=== PATIENT | male | born 1960 | race Caucasian/White ===

== ENCOUNTER 2017-04-30 18:49 | Observation (INO) | payer MEDICAID, OTHER ==
[~2017-04-30] VITALS: Ht 172.7 cm; Wt 59.1 kg
[2017-04-30 19:37] LABS: BASOPHILS # (AUTO) 0.07 x10^3/uL (0-0.1); BASOPHILS % (AUTO) 1 % (0-1); EOSINOPHILS % (AUTO) 1 % (1-7); LYMPHOCYTES # (AUTO) 3.31 x10^3/uL (1-3.4); LYMPHOCYTES % (AUTO) 21 % (22-44); MD NO; MEAN CORPUSCULAR HEMOGLOBIN 33.2 pg (27.5-34.5); MEAN CORPUSCULAR HGB CONC 34.2 g/dL (33.2-36.2); MEAN CORPUSCULAR VOLUME 96.9 fL (81-97); MEAN PLATELET VOLUME 7.7 fL (7.4-10.4); MONOCYTES % (AUTO) 8 % (2-9); NEUTROPHILS # (AUTO) 10.96 x10^3/uL (1.8-6.8); NEUTROPHILS % (AUTO) 69 % (42-75); PLATELET COUNT 370 x10^3/uL (130-400); RED BLOOD COUNT 4.41 x10^6/uL (4.38-5.82); RED CELL DISTRIBUTION WIDTH 14.3 % (9.4-14.8)
[2017-04-30 19:42] LABS: ALANINE AMINOTRANSFERASE 23 U/L (12-78); ALBUMIN 4.1 g/dL (3.4-5.0); ANION GAP 9 mmol/L (5-15); CALCIUM 8.8 mg/dL (8.5-10.1); CHLORIDE 109 mmol/L (98-107); CREATININE 0.88 mg/dL (0.7-1.3); SALICYLATE LEVEL 7.4 mg/dL (2.8-20.0)
[2017-04-30 19:44] LABS: ALKALINE PHOSPHATASE 79 U/L (45-117); BILIRUBIN,TOTAL 0.3 mg/dL (0.2-1.0); TOTAL PROTEIN 7.5 g/dL (6.4-8.2)
[2017-04-30 19:45] LABS: ACETAMINOPHEN < 2 mcg/mL (10-30)
[2017-04-30 21:22] LABS: AMPHETAMINE SCREEN, URINE Negative (Negative); BARBITURATE SCREEN, URINE Negative (Negative); BENZODIAZEPINE SCREEN, URINE Negative (Negative); CANNABINOID SCREEN, URINE Negative (Negative); COCAINE SCREEN, URINE Negative (Negative); METHADONE SCREEN, URINE Negative (Negative); OPIATE SCREEN, URINE Negative (Negative)
[2017-04-30] MEDS ORDERED: METH20TA PO (21:33)
[2017-04-30] MEDS ORDERED: PARO20TA98 PO (21:33)
[2017-05-02] MEDS ORDERED: ACETAMINOPHEN 500 MG TABLET ONE (17:39)
[2017-05-02] MEDS ORDERED: ACETAMINOPHEN 325 MG TABLET PO ONE (19:00)
[2017-05-03] MEDS ORDERED: ACETAMINOPHEN 500 MG TABLET ONE (14:49)
[2017-05-03] MEDS ORDERED: ACETAMINOPHEN 325 MG TABLET PO ONE (15:00)
[2017-05-04] MEDS ORDERED: DOCUSATE 100 MG CAPSULE PO PRN (16:30)
[2017-05-04 16:40] LABS: BASOPHILS # (AUTO) 0.06 x10^3/uL (0-0.1); BASOPHILS % (AUTO) 1 % (0-1); EOSINOPHILS % (AUTO) 4 % (1-7); LYMPHOCYTES # (AUTO) 2.86 x10^3/uL (1-3.4); LYMPHOCYTES % (AUTO) 34 % (22-44); MD NO; MEAN CORPUSCULAR HEMOGLOBIN 32.7 pg (27.5-34.5); MEAN CORPUSCULAR HGB CONC 33.7 g/dL (33.2-36.2); MEAN CORPUSCULAR VOLUME 97.1 fL (81-97); MEAN PLATELET VOLUME 7.9 fL (7.4-10.4); MONOCYTES # (AUTO) 1.09 x10^3/uL (0.2-0.8); MONOCYTES % (AUTO) 13 % (2-9); NEUTROPHILS # (AUTO) 4.23 x10^3/uL (1.8-6.8); NEUTROPHILS % (AUTO) 50 % (42-75); PLATELET COUNT 336 x10^3/uL (130-400); RED BLOOD COUNT 4.21 x10^6/uL (4.38-5.82); RED CELL DISTRIBUTION WIDTH 14.3 % (9.4-14.8)
[2017-05-04 17:12] LABS: MICROSCOPIC AUTO
[2017-05-04 17:27] LABS: CULTURE INDICATED? NO
[2017-05-04] MEDS ORDERED: ACETAMINOPHEN 325 MG TABLET ONE (21:26)
[2017-05-04] MEDS: ACETAMINOPHEN 325 MG TABLET PO PRN (21:29)
[2017-05-05] MEDS ORDERED: TAMSULOSIN 0.4 MG CAP.ER.24H ONE (07:54)
[2017-05-05] MEDS: TAMSULOSIN 0.4 MG CAP.ER.24H PO SCH (08:08)
[2017-05-05] MEDS: PAROXETINE 20 MG TABLET PO SCH (08:33)
[2017-05-05 19:35] VITALS: BP 116/67
[2017-05-06 07:45] VITALS: BP 131/82
[2017-05-06] MEDS: TAMSULOSIN 0.4 MG CAP.ER.24H PO SCH (08:41)
[2017-05-06] MEDS: PAROXETINE 20 MG TABLET PO SCH (08:42)
[2017-05-06 19:31] VITALS: BP 111/72
[2017-05-07 07:24] VITALS: BP 117/78
[2017-05-07] MEDS: TAMSULOSIN 0.4 MG CAP.ER.24H PO SCH (07:52)
[2017-05-07] MEDS: PAROXETINE 20 MG TABLET PO SCH (07:52)
[2017-05-07] MEDS: ACETAMINOPHEN 325 MG TABLET PO PRN (08:00)
[2017-05-07 19:28] VITALS: BP 111/68
[2017-05-08 07:44] VITALS: BP 119/76
[2017-05-08] MEDS: PAROXETINE 20 MG TABLET PO SCH (08:05)
[2017-05-08] MEDS: TAMSULOSIN 0.4 MG CAP.ER.24H PO SCH ×4 (08:05→08:08)
[2017-05-08 20:02] VITALS: BP 109/70
[2017-05-09 07:40] VITALS: BP 120/80
[2017-05-09] MEDS: TAMSULOSIN 0.4 MG CAP.ER.24H PO SCH (08:01)
[2017-05-09] MEDS: PAROXETINE 20 MG TABLET PO SCH (08:01)
[2017-05-09 19:46] VITALS: BP 105/72
[2017-05-10 07:26] VITALS: BP 124/80
[2017-05-10] MEDS: PAROXETINE 20 MG TABLET PO SCH (08:29)
[2017-05-10] MEDS: TAMSULOSIN 0.4 MG CAP.ER.24H PO SCH (08:29)
[2017-05-10 19:40] VITALS: BP 113/69
[2017-05-11 07:45] VITALS: BP 121/78
[2017-05-11] MEDS: PAROXETINE 20 MG TABLET PO SCH (08:12)
[2017-05-11] MEDS: TAMSULOSIN 0.4 MG CAP.ER.24H PO SCH (08:13)
[2017-05-11] MEDS ORDERED: TAMS-11 PO (14:58)
== END 2017-05-11 16:14 | disposition home or self-care (01) ==
LOC: MERGE 18:49 → EDBD 18:49 → ED 21:06 → EDIP 05-04 16:17 → 2N 05-05 19:28
PROVIDERS: ADMIT Internal Medicine; ATTEND Internal Medicine
DX: R45.851 Suicidal ideations (principal); D72.829 Elevated white blood cell count, unspecified; F10.10 Alcohol abuse, uncomplicated; F32.9 Major depressive disorder, single episode, unspecified; F98.8 Other specified behavioral and emotional disorders with onset usually occurring in childhood and adolescence; Z82.3 Family history of stroke; Z85.828 Personal history of other malignant neoplasm of skin; Z91.5 Personal history of self-harm; Z72.0 Tobacco use
CPT/HCPCS: 36415; 80053; 80307; 80329; 81001; 85025; 99285; G0378; G0480

== ENCOUNTER 2017-09-27 00:58 | Observation (INO) | payer MEDICAID, OTHER ==
[~2017-09-27] VITALS: Ht 170.2 cm; Wt 56.5 kg
[~2017-09-27 00:58] MED LIST: METH20TA PO; PARO20TA98 PO; TAMS-11 PO
[2017-09-27 01:52] LABS: BASOPHILS # (AUTO) 0.03 x10^3/uL (0-0.1); BASOPHILS % (AUTO) 0 % (0-1); EOSINOPHILS # (AUTO) 0.14 x10^3/uL (0-0.4); EOSINOPHILS % (AUTO) 1 % (1-7); LYMPHOCYTES # (AUTO) 2.31 x10^3/uL (1-3.4); LYMPHOCYTES % (AUTO) 19 % (22-44); MD NO; MEAN CORPUSCULAR HEMOGLOBIN 33.5 pg (27.5-34.5); MEAN CORPUSCULAR HGB CONC 34.3 g/dL (33.2-36.2); MEAN CORPUSCULAR VOLUME 97.7 fL (81-97); MEAN PLATELET VOLUME 8.1 fL (7.4-10.4); MONOCYTES # (AUTO) 1.36 x10^3/uL (0.2-0.8); MONOCYTES % (AUTO) 11 % (2-9); NEUTROPHILS # (AUTO) 8.25 x10^3/uL (1.8-6.8); NEUTROPHILS % (AUTO) 68 % (42-75); PLATELET COUNT 406 x10^3/uL (130-400); RED BLOOD COUNT 4.54 x10^6/uL (4.38-5.82); RED CELL DISTRIBUTION WIDTH 14.2 % (9.4-14.8)
[2017-09-27 02:05] LABS: ALBUMIN 4.1 g/dL (3.4-5.0); ANION GAP 7 mmol/L (5-15); CALCIUM 9.3 mg/dL (8.5-10.1); CHLORIDE 106 mmol/L (98-107)
[2017-09-27 02:07] LABS: ALANINE AMINOTRANSFERASE 44 U/L (12-78); ALKALINE PHOSPHATASE 88 U/L (45-117); BILIRUBIN,TOTAL 1.1 mg/dL (0.2-1.0); CREATININE 1.09 mg/dL (0.7-1.3); TOTAL PROTEIN 7.5 g/dL (6.4-8.2)
[2017-09-27 02:09] LABS: ACETAMINOPHEN < 2 mcg/mL (10-30)
[2017-09-27 02:30] LABS: AMPHETAMINE SCREEN, URINE Positive (Negative); BARBITURATE SCREEN, URINE Negative (Negative); BENZODIAZEPINE SCREEN, URINE Negative (Negative); CANNABINOID SCREEN, URINE Positive (Negative); COCAINE SCREEN, URINE Negative (Negative); METHADONE SCREEN, URINE Negative (Negative); OPIATE SCREEN, URINE Positive (Negative)
[2017-09-27] MEDS ORDERED: PROMETHAZINE 25 MG/ML, 1ML IM PRN (08:00)
[2017-09-27] MEDS ORDERED: ACETAMINOPHEN 325 MG TABLET PO PRN (08:00)
[2017-09-27] MEDS ORDERED: ONDANSETRON ODT 4 MG PO PRN (08:00)
[2017-09-27 08:20] LABS: FREE T4 (FREE THYROXINE) 1.22 ng/dL (0.76-1.46); THYROID STIMULATING HORMONE 1.28 mIU/L (0.358-3.740)
[2017-09-27] MEDS ORDERED: LORazepam 1MG TABLET PO PRN (10:30)
[2017-09-27] MEDS ORDERED: LORazepam 1MG TABLET ONE (11:01)
[2017-09-27] MEDS ORDERED: PROMETHAZINE 25 MG/ML, 1ML ONE (11:05)
[2017-09-27] MEDS ORDERED: ENALAPRILAT 1.25 MG/ML, 2ML IV PRN (14:30)
[2017-09-28] MEDS ORDERED: LORazepam 1MG TABLET ONE (01:49)
[2017-09-28] MEDS ORDERED: LORazepam 1MG TABLET PO ONE (02:00)
[2017-09-28 05:58] LABS: BASOPHILS # (AUTO) 0.08 x10^3/uL (0-0.1); BASOPHILS % (AUTO) 1 % (0-1); EOSINOPHILS # (AUTO) 0.35 x10^3/uL (0-0.4); EOSINOPHILS % (AUTO) 3 % (1-7); LYMPHOCYTES % (AUTO) 17 % (22-44); MD NO; MEAN CORPUSCULAR HEMOGLOBIN 33.5 pg (27.5-34.5); MEAN CORPUSCULAR HGB CONC 33.9 g/dL (33.2-36.2); MEAN CORPUSCULAR VOLUME 98.8 fL (81-97); MEAN PLATELET VOLUME 8.3 fL (7.4-10.4); MONOCYTES # (AUTO) 1.32 x10^3/uL (0.2-0.8); MONOCYTES % (AUTO) 11 % (2-9); NEUTROPHILS # (AUTO) 8.64 x10^3/uL (1.8-6.8); NEUTROPHILS % (AUTO) 69 % (42-75); PLATELET COUNT 397 x10^3/uL (130-400); RED CELL DISTRIBUTION WIDTH 14.4 % (9.4-14.8)
[2017-09-28 06:07] LABS: ALANINE AMINOTRANSFERASE 51 U/L (12-78); ALBUMIN 3.7 g/dL (3.4-5.0); ANION GAP 7 mmol/L (5-15); CALCIUM 9.2 mg/dL (8.5-10.1); CHLORIDE 104 mmol/L (98-107); CREATININE 0.85 mg/dL (0.7-1.3)
[2017-09-28 06:10] LABS: ALKALINE PHOSPHATASE 89 U/L (45-117); BILIRUBIN,TOTAL 0.7 mg/dL (0.2-1.0); TOTAL PROTEIN 7.1 g/dL (6.4-8.2)
[2017-09-28] MEDS: NICOTINE 14MG/24 HR PATCH.TD24 TD SCH ×2 (07:13→11:30)
[2017-09-28] MEDS: PAROXETINE 20 MG TABLET PO SCH ×2 (07:13→11:31)
[2017-09-28] MEDS: ENOXAPARIN 40 MG/0.4 ML SQ SCH ×2 (07:14→11:26)
[2017-09-28 10:01] LABS: TROPONIN I < 0.015 ng/mL (0.000-0.045)
[2017-09-28] MEDS ORDERED: NICOTINE 14MG/24 HR PATCH.TD24 ONE (10:53)
[2017-09-28] MEDS ORDERED: ENOXAPARIN 40 MG/0.4 ML ONE (10:53)
[2017-09-28 11:25] VITALS: BP 107/81
[2017-09-28] MEDS ORDERED: ASPIRIN 325 MG TABLET PO ONE (13:00)
[2017-09-28] MEDS ORDERED: ASPIRIN 325 MG TABLET EC ONE (13:03)
[2017-09-28 13:05] LABS: HEMOGLOBIN A1C 5.7 % (4.2-6.3)
[2017-09-28 15:45] LABS: TROPONIN I < 0.015 ng/mL (0.000-0.045)
== END 2017-09-28 17:50 ==
LOC: ED 05:47 → EDIP 06:43
PROVIDERS: ADMIT Internal Medicine; ATTEND Internal Medicine
DX: R45.851 Suicidal ideations (principal); F17.210 Nicotine dependence, cigarettes, uncomplicated; D72.829 Elevated white blood cell count, unspecified; F22 Delusional disorders; F31.9 Bipolar disorder, unspecified; R45.850 Homicidal ideations; Z81.8 Family history of other mental and behavioral disorders; Z91.5 Personal history of self-harm; E72.51 Non-ketotic hyperglycinemia; R07.89 Other chest pain; D47.3 Essential (hemorrhagic) thrombocythemia
CPT/HCPCS: 36415; 80053; 80307; 80329; 83036; 84439; 84443; 84484; 85025; 93005; 96372; 99285; G0378; J1650; J2550; G0480

== ENCOUNTER 2017-10-29 00:26 | Observation (INO) | payer MEDICAID ==
[~2017-10-29] VITALS: Ht 165.1 cm; Wt 60.5 kg
[2017-10-29 00:49] LABS: BASOPHILS # (AUTO) 0.01 x10^3/uL (0-0.1); BASOPHILS % (AUTO) 0 % (0-1); EOSINOPHILS % (AUTO) 7 % (1-7); LYMPHOCYTES # (AUTO) 1.86 x10^3/uL (1-3.4); LYMPHOCYTES % (AUTO) 18 % (22-44); MD NO; MEAN CORPUSCULAR HEMOGLOBIN 33.4 pg (27.5-34.5); MEAN CORPUSCULAR HGB CONC 34.1 g/dL (33.2-36.2); MEAN CORPUSCULAR VOLUME 97.9 fL (81-97); MONOCYTES # (AUTO) 1.07 x10^3/uL (0.2-0.8); MONOCYTES % (AUTO) 11 % (2-9); NEUTROPHILS # (AUTO) 6.57 x10^3/uL (1.8-6.8); NEUTROPHILS % (AUTO) 64 % (42-75); PLATELET COUNT 430 x10^3/uL (130-400); RED BLOOD COUNT 4.09 x10^6/uL (4.38-5.82); RED CELL DISTRIBUTION WIDTH 14.4 % (9.4-14.8)
[2017-10-29 00:59] LABS: ALBUMIN 3.3 g/dL (3.4-5.0); ANION GAP 3 mmol/L (5-15); CALCIUM 8.5 mg/dL (8.5-10.1); CHLORIDE 106 mmol/L (98-107); CREATININE 0.89 mg/dL (0.7-1.3); SALICYLATE LEVEL 2.4 mg/dL (2.8-20.0)
[2017-10-29 01:07] LABS: ACETAMINOPHEN < 2 mcg/mL (10-30)
[2017-10-29 01:31] LABS: AMPHETAMINE SCREEN, URINE Negative (Negative); BARBITURATE SCREEN, URINE Negative (Negative); BENZODIAZEPINE SCREEN, URINE Negative (Negative); CANNABINOID SCREEN, URINE Negative (Negative); COCAINE SCREEN, URINE Negative (Negative); METHADONE SCREEN, URINE Negative (Negative); OPIATE SCREEN, URINE Negative (Negative)
[2017-10-29] MEDS ORDERED: ACETAMINOPHEN 325 MG TABLET PO PRN (07:30)
[2017-10-29] MEDS ORDERED: DOCUSATE 100 MG CAPSULE PO PRN (07:30)
[2017-10-29] MEDS ORDERED: ONDANSETRON ODT 4 MG PO PRN (07:30)
[2017-10-29] MEDS ORDERED: POTASSIUM CHLORIDE 20 MEQ TAB.ER.PRT PO ONE (07:30)
[2017-10-29] MEDS ORDERED: LORazepam 1MG TABLET PO PRN (07:30)
[2017-10-29] MEDS ORDERED: POTASSIUM CHLORIDE 20 MEQ TAB.ER.PRT ONE (08:12)
[2017-10-29] MEDS: PAROXETINE 20 MG TABLET PO SCH (09:30)
[2017-10-30] MEDS: PAROXETINE 20 MG TABLET PO SCH (08:11)
[2017-10-30 19:55] VITALS: BP 127/79
[2017-10-31 07:57] VITALS: BP 131/83
[2017-10-31] MEDS: PAROXETINE 20 MG TABLET PO SCH (09:28)
== END 2017-10-31 14:20 ==
LOC: ED 00:31 → EDIP 06:20 → 2N 10-30 17:33
PROVIDERS: ADMIT Internal Medicine; ATTEND Internal Medicine
DX: R45.851 Suicidal ideations (principal); F32.9 Major depressive disorder, single episode, unspecified; E87.6 Hypokalemia; D72.829 Elevated white blood cell count, unspecified; E44.1 Mild protein-calorie malnutrition; F17.210 Nicotine dependence, cigarettes, uncomplicated; F90.9 Attention-deficit hyperactivity disorder, unspecified type; Z81.8 Family history of other mental and behavioral disorders; Z85.828 Personal history of other malignant neoplasm of skin
CPT/HCPCS: 36415; 80048; 80307; 80329; 82040; 85025; 99285; G0378; G0480

== ENCOUNTER 2017-10-31 14:23 | Inpatient (IN) | payer MEDICAID ==
[~2017-10-31] VITALS: Ht 170.2 cm; Wt 57.6 kg
[2017-10-31] MEDS ORDERED: ONDANSETRON ODT 4 MG PO PRN (15:00)
[2017-10-31] MEDS ORDERED: BISACODYL 10 MG SUPP PR PRN (15:00)
[2017-10-31] MEDS ORDERED: PLEASE ENTER HEIGHT AND WEIGHT MC SCH (15:00)
[2017-10-31] MEDS ORDERED: POLYETHYLENE GLYCOL 17 GM PACKET PO PRN (15:00)
[2017-10-31 15:02] VITALS: BP 128/83
[2017-10-31 15:47] VITALS: BP 128/83
[2017-10-31] MEDS: NICOTINE 14MG/24 HR PATCH.TD24 TD SCH (16:00)
[2017-10-31 19:43] VITALS: BP 132/86
[2017-10-31] MEDS: ACETAMINOPHEN 325 MG TABLET PO PRN (20:08)
[2017-11-01 06:02] LABS: CHOL/HDL RATIO 3.6; FOLATE LEVEL 17.7 ng/mL (3.1-17.5); FREE T4 (FREE THYROXINE) 0.73 ng/dL (0.76-1.46); LDL/HDL RATIO 2.1 (0.5-3.0); THYROID STIMULATING HORMONE 2.38 mIU/L (0.358-3.740)
[2017-11-01 07:24] VITALS: BP 128/82
[2017-11-01] MEDS: ACETAMINOPHEN 325 MG TABLET PO PRN (10:41)
[2017-11-01] MEDS: THIAMINE 100MG TABLET PO SCH (14:34)
[2017-11-01] MEDS: BUPROPION 100 MG TABLET PO SCH (14:34)
[2017-11-01] MEDS: NICOTINE 14MG/24 HR PATCH.TD24 TD SCH (15:16)
[2017-11-01 19:37] VITALS: BP 110/73
[2017-11-01] MEDS ORDERED: QUETIAPINE 25MG TABLET PO SCH (21:00)
[2017-11-02] MEDS: ACETAMINOPHEN 325 MG TABLET PO PRN ×3 (02:24→19:40)
[2017-11-02 08:00] VITALS: BP 116/73
[2017-11-02] MEDS: BUPROPION 100 MG TABLET PO SCH (09:17)
[2017-11-02] MEDS: THIAMINE 100MG TABLET PO SCH (09:17)
[2017-11-02] MEDS: NICOTINE 14MG/24 HR PATCH.TD24 TD SCH (16:00)
[2017-11-02 19:26] VITALS: BP 114/74
[2017-11-02] MEDS: QUETIAPINE 25MG TABLET PO SCH (20:02)
[2017-11-03 07:09] VITALS: BP 105/69
[2017-11-03] MEDS: BUPROPION 100 MG TABLET PO SCH (08:59)
[2017-11-03] MEDS: THIAMINE 100MG TABLET PO SCH (08:59)
[2017-11-03] MEDS: NICOTINE 14MG/24 HR PATCH.TD24 TD SCH (15:12)
[2017-11-03 19:29] VITALS: BP 99/66
[2017-11-03] MEDS: ACETAMINOPHEN 325 MG TABLET PO PRN (21:00)
[2017-11-03] MEDS: QUETIAPINE 25MG TABLET PO SCH (21:01)
[2017-11-04 07:47] VITALS: BP 108/68
[2017-11-04] MEDS: BUPROPION 75 MG TABLET PO SCH (08:47)
[2017-11-04] MEDS: THIAMINE 100MG TABLET PO SCH ×2 (08:47→09:00)
[2017-11-04] MEDS: NICOTINE 14MG/24 HR PATCH.TD24 TD SCH (09:01)
[2017-11-04 19:17] VITALS: BP 103/64
[2017-11-04] MEDS: QUETIAPINE 25MG TABLET PO SCH (21:14)
[2017-11-05 07:35] VITALS: BP 105/66
[2017-11-05] MEDS: THIAMINE 100MG TABLET PO SCH (09:03)
[2017-11-05] MEDS: BUPROPION 75 MG TABLET PO SCH (09:03)
[2017-11-05] MEDS: NICOTINE 14MG/24 HR PATCH.TD24 TD SCH (16:00)
[2017-11-05 19:42] VITALS: BP 121/71
[2017-11-05] MEDS: ACETAMINOPHEN 325 MG TABLET PO PRN (20:45)
[2017-11-05] MEDS: TRAZODONE 50MG TABLET PO PRN (20:45)
[2017-11-05] MEDS: QUETIAPINE 25MG TABLET PO SCH (20:46)
[2017-11-06] MEDS: DOCUSATE 100 MG CAPSULE PO PRN ×2 (05:55→20:20)
[2017-11-06 07:20] VITALS: BP 105/69
[2017-11-06] MEDS: THIAMINE 100MG TABLET PO SCH (08:39)
[2017-11-06] MEDS: BUPROPION 75 MG TABLET PO SCH (08:40)
[2017-11-06] MEDS: NICOTINE 14MG/24 HR PATCH.TD24 TD SCH (16:00)
[2017-11-06 19:22] VITALS: BP 104/66
[2017-11-06] MEDS: QUETIAPINE 25MG TABLET PO SCH (20:20)
[2017-11-06] MEDS: ACETAMINOPHEN 325 MG TABLET PO PRN (20:20)
[2017-11-06] MEDS: TRAZODONE 50MG TABLET PO PRN (20:20)
[2017-11-07 07:39] VITALS: BP 103/66
[2017-11-07] MEDS: BUPROPION 75 MG TABLET PO SCH (08:15)
[2017-11-07] MEDS: THIAMINE 100MG TABLET PO SCH (08:15)
[2017-11-07] MEDS: NICOTINE 14MG/24 HR PATCH.TD24 TD SCH (16:00)
[2017-11-07 19:28] VITALS: BP 115/71
[2017-11-07] MEDS: QUETIAPINE 25MG TABLET PO SCH (20:18)
[2017-11-07] MEDS: TRAZODONE 50MG TABLET PO PRN (20:18)
[2017-11-08 07:35] VITALS: BP 110/71
[2017-11-08] MEDS: BUPROPION 75 MG TABLET PO SCH (08:22)
[2017-11-08] MEDS: THIAMINE 100MG TABLET PO SCH (08:23)
[2017-11-08] MEDS: NICOTINE 14MG/24 HR PATCH.TD24 TD SCH (08:24)
[2017-11-08 19:19] VITALS: BP 123/73
[2017-11-08] MEDS: QUETIAPINE 25MG TABLET PO SCH (20:27)
[2017-11-09 07:40] VITALS: BP 123/74
[2017-11-09] MEDS: BUPROPION 75 MG TABLET PO SCH (08:15)
[2017-11-09] MEDS: THIAMINE 100MG TABLET PO SCH (08:15)
[2017-11-09] MEDS: NICOTINE 14MG/24 HR PATCH.TD24 TD SCH (16:00)
[2017-11-09 19:54] VITALS: BP 109/69
[2017-11-09] MEDS: QUETIAPINE 25MG TABLET PO SCH (21:09)
[2017-11-09] MEDS: TRAZODONE 50MG TABLET PO PRN (21:12)
[2017-11-10 07:17] VITALS: BP 112/66
[2017-11-10] MEDS: BUPROPION 75 MG TABLET PO SCH (09:39)
[2017-11-10] MEDS: THIAMINE 100MG TABLET PO SCH (09:39)
[2017-11-10] MEDS: NICOTINE 14MG/24 HR PATCH.TD24 TD SCH (16:29)
[2017-11-10 19:32] VITALS: BP 110/62
[2017-11-10] MEDS: QUETIAPINE 25MG TABLET PO SCH (19:58)
[2017-11-10] MEDS: TRAZODONE 50MG TABLET PO PRN (19:58)
[2017-11-11 07:30] VITALS: BP 109/68
[2017-11-11] MEDS: THIAMINE 100MG TABLET PO SCH ×2 (08:53→09:04)
[2017-11-11] MEDS: BUPROPION 75 MG TABLET PO SCH (08:53)
[2017-11-11] MEDS: NICOTINE 14MG/24 HR PATCH.TD24 TD SCH (15:44)
[2017-11-11 19:30] VITALS: BP 107/75
[2017-11-11] MEDS: TRAZODONE 50MG TABLET PO PRN (20:17)
[2017-11-11] MEDS: QUETIAPINE 25MG TABLET PO SCH (20:17)
[2017-11-12 07:53] VITALS: BP 109/69
[2017-11-12] MEDS: BUPROPION 75 MG TABLET PO SCH (08:08)
[2017-11-12] MEDS: THIAMINE 100MG TABLET PO SCH (08:11)
[2017-11-12] MEDS: NICOTINE 14MG/24 HR PATCH.TD24 TD SCH (09:03)
[2017-11-12 19:42] VITALS: BP 108/73
[2017-11-12] MEDS: QUETIAPINE 25MG TABLET PO SCH (20:23)
[2017-11-12] MEDS: TRAZODONE 50MG TABLET PO PRN (20:23)
[2017-11-13 07:39] VITALS: BP 99/61
[2017-11-13] MEDS: BUPROPION 75 MG TABLET PO SCH (08:37)
[2017-11-13] MEDS: THIAMINE 100MG TABLET PO SCH (08:37)
[2017-11-13] MEDS ORDERED: QUET25TA PO (12:14)
[2017-11-13] MEDS ORDERED: BUPR75TA6 PO (12:14)
[2017-11-13] MEDS: NICOTINE 14MG/24 HR PATCH.TD24 TD SCH (15:16)
[2017-11-13 19:55] VITALS: BP 103/66
[2017-11-13] MEDS: QUETIAPINE 25MG TABLET PO SCH (21:56)
[2017-11-13] MEDS: TRAZODONE 50MG TABLET PO PRN (21:56)
[2017-11-14] MEDS: BUPROPION 75 MG TABLET PO SCH (08:16)
[2017-11-14 08:19] VITALS: BP 102/66
[2017-11-14] MEDS: THIAMINE 100MG TABLET PO SCH (08:19)
== END 2017-11-14 09:15 | disposition home or self-care (01) | DRG 885 ==
LOC: 3E 14:26
PROVIDERS: ADMIT Counselor Mental Health; ATTEND Counselor Mental Health
DX: F31.30 Bipolar disorder, current episode depressed, mild or moderate severity, unspecified (principal); R45.851 Suicidal ideations; F41.9 Anxiety disorder, unspecified; F10.21 Alcohol dependence, in remission; F12.10 Cannabis abuse, uncomplicated; F17.210 Nicotine dependence, cigarettes, uncomplicated; Z85.828 Personal history of other malignant neoplasm of skin; Z81.8 Family history of other mental and behavioral disorders; Z90.49 Acquired absence of other specified parts of digestive tract; Z82.3 Family history of stroke; Z83.3 Family history of diabetes mellitus; Z59.0 Homelessness
CPT/HCPCS: 36415; 80061; 82607; 82746; 84439; 84443; 86592; 93005; 92523-GN

== ENCOUNTER 2017-11-14 22:49 | Observation (INO) | payer MEDICAID, OTHER ==
[~2017-11-14] VITALS: Ht 170.2 cm; Wt 62.5 kg
[~2017-11-14 22:49] MED LIST changes: +BUPR75TA6 PO; +QUET25TA PO
[2017-11-15] LABS: BASOPHILS # (AUTO) 0.08 x10^3/uL (0-0.1); BASOPHILS % (AUTO) 1 % (0-1); EOSINOPHILS # (AUTO) 0.31 x10^3/uL (0-0.4); EOSINOPHILS % (AUTO) 2 % (1-7); LYMPHOCYTES # (AUTO) 2.58 x10^3/uL (1-3.4); LYMPHOCYTES % (AUTO) 17 % (22-44); MD NO; MEAN CORPUSCULAR HEMOGLOBIN 32.4 pg (27.5-34.5); MEAN CORPUSCULAR HGB CONC 33.5 g/dL (33.2-36.2); MEAN CORPUSCULAR VOLUME 96.8 fL (81-97); MEAN PLATELET VOLUME 7.9 fL (7.4-10.4); MONOCYTES # (AUTO) 1.43 x10^3/uL (0.2-0.8); MONOCYTES % (AUTO) 9 % (2-9); NEUTROPHILS # (AUTO) 11.14 x10^3/uL (1.8-6.8); NEUTROPHILS % (AUTO) 72 % (42-75); PLATELET COUNT 478 x10^3/uL (130-400); RED CELL DISTRIBUTION WIDTH 14.9 % (9.4-14.8)
[2017-11-15 00:11] LABS: ALBUMIN 4.1 g/dL (3.4-5.0); ANION GAP 4 mmol/L (5-15); CALCIUM 9.3 mg/dL (8.5-10.1); CHLORIDE 106 mmol/L (98-107); CREATININE 1.05 mg/dL (0.7-1.3); SALICYLATE LEVEL 2.2 mg/dL (2.8-20.0)
[2017-11-15 00:15] LABS: ACETAMINOPHEN < 2 mcg/mL (10-30)
[2017-11-15 01:17] LABS: AMPHETAMINE SCREEN, URINE Negative (Negative); BARBITURATE SCREEN, URINE Negative (Negative); BENZODIAZEPINE SCREEN, URINE Negative (Negative); CANNABINOID SCREEN, URINE Negative (Negative); COCAINE SCREEN, URINE Negative (Negative); METHADONE SCREEN, URINE Negative (Negative); OPIATE SCREEN, URINE Negative (Negative)
[2017-11-15] MEDS ORDERED: POLYETHYLENE GLYCOL 17 GM PACKET PO PRN (11:30)
[2017-11-15] MEDS ORDERED: IBUPROFEN 200 MG TABLET PO PRN (11:30)
[2017-11-15] MEDS ORDERED: DOCUSATE 100 MG CAPSULE PO PRN (11:30)
[2017-11-15] MEDS ORDERED: ACETAMINOPHEN 325 MG TABLET PO PRN (11:30)
[2017-11-15] MEDS ORDERED: ONDANSETRON ODT 4 MG PO PRN (11:30)
[2017-11-15] MEDS ORDERED: BISACODYL 10 MG SUPP PR PRN (11:30)
[2017-11-15] MEDS: BUPROPION SR 150 MG TABLET PO SCH (12:40)
[2017-11-15] MEDS ORDERED: QUETIAPINE FUMARATE 100 MG PO SCH (21:00)
[2017-11-15] MEDS ORDERED: QUETIAPINE 100MG TABLET ONE (22:12)
[2017-11-16 20:12] VITALS: BP 112/78
[2017-11-16] MEDS: QUETIAPINE 100MG TABLET PO SCH (20:39)
[2017-11-17 07:41] VITALS: BP 103/60
[2017-11-17] MEDS: BUPROPION SR 150 MG TABLET PO SCH (08:33)
[2017-11-17 19:31] VITALS: BP 118/80
[2017-11-17] MEDS: QUETIAPINE 100MG TABLET PO SCH (20:32)
[2017-11-18 07:55] VITALS: BP 109/68
[2017-11-18] MEDS: BUPROPION SR 150 MG TABLET PO SCH (08:09)
[2017-11-18 19:16] VITALS: BP 105/70
[2017-11-18] MEDS: QUETIAPINE 100MG TABLET PO SCH (20:33)
[2017-11-19 08:11] VITALS: BP 100/65
[2017-11-19] MEDS: BUPROPION SR 150 MG TABLET PO SCH (08:58)
[2017-11-19 19:29] VITALS: BP 107/71
[2017-11-19] MEDS: QUETIAPINE 100MG TABLET PO SCH (21:03)
[2017-11-20 07:40] VITALS: BP 105/72
[2017-11-20] MEDS: BUPROPION SR 150 MG TABLET PO SCH (08:53)
[2017-11-20 19:33] VITALS: BP 119/69
[2017-11-20] MEDS: QUETIAPINE 100MG TABLET PO SCH (20:41)
[2017-11-21] MEDS: BUPROPION SR 150 MG TABLET PO SCH (08:23)
[2017-11-21 08:41] VITALS: BP 109/69
[2017-11-21 19:34] VITALS: BP 125/80
[2017-11-21] MEDS: QUETIAPINE 100MG TABLET PO SCH (20:44)
[2017-11-22 07:50] VITALS: BP 115/78
[2017-11-22] MEDS: BUPROPION SR 150 MG TABLET PO SCH (08:08)
[2017-11-22 19:10] VITALS: BP 111/70
[2017-11-22] MEDS: QUETIAPINE 100MG TABLET PO SCH (20:33)
[2017-11-23 08:11] VITALS: BP_SYST 132
[2017-11-23] MEDS: BUPROPION SR 150 MG TABLET PO SCH (09:12)
[2017-11-23 19:33] VITALS: BP 116/72
[2017-11-23] MEDS: QUETIAPINE 100MG TABLET PO SCH (20:50)
[2017-11-24] MEDS: BUPROPION SR 150 MG TABLET PO SCH (07:57)
[2017-11-24 08:21] VITALS: BP_SYST 118
[2017-11-24 19:41] VITALS: BP 118/80
[2017-11-24] MEDS: QUETIAPINE 100MG TABLET PO SCH (21:06)
[2017-11-25 08:12] VITALS: BP 114/72
[2017-11-25] MEDS: BUPROPION SR 150 MG TABLET PO SCH (09:07)
[2017-11-25 20:41] VITALS: BP 114/77
[2017-11-25] MEDS: QUETIAPINE 100MG TABLET PO SCH (20:42)
== END 2017-11-26 02:40 ==
LOC: ED 23:49 → EDIP 11-15 06:57 → 2N 11-16 14:00
PROVIDERS: ADMIT Hospitalist; ATTEND Hospitalist
DX: R45.851 Suicidal ideations (principal); D72.829 Elevated white blood cell count, unspecified; F10.10 Alcohol abuse, uncomplicated; F17.210 Nicotine dependence, cigarettes, uncomplicated; F31.9 Bipolar disorder, unspecified; F41.9 Anxiety disorder, unspecified; F90.9 Attention-deficit hyperactivity disorder, unspecified type; Z81.8 Family history of other mental and behavioral disorders; Z83.3 Family history of diabetes mellitus; Z91.5 Personal history of self-harm
CPT/HCPCS: 36415; 80048; 80307; 80329; 82040; 85025; 99285; G0378; G0480

== ENCOUNTER 2019-09-17 05:46 | Emergency (ER) | payer MEDICAID, OTHER ==
[~2019-09-17] VITALS: Ht 170.2 cm; Wt 64.5 kg
[~2019-09-17 05:46] MED LIST changes: -QUET25TA PO; +QUET25TA7 PO
[2019-09-17] MEDS ORDERED: LORazepam 1MG TABLET ONE ×3 (06:25→10:06)
[2019-09-17] MEDS ORDERED: ONDANSETRON ODT 4 MG ONE (06:25)
[2019-09-17] MEDS ORDERED: THIAMINE 100MG TABLET ONE (06:25)
[2019-09-17] MEDS ORDERED: ONDANSETRON ODT 4 MG PO ONE (06:30)
[2019-09-17] MEDS ORDERED: LORazepam 1MG TABLET PO ONE ×3 (06:30→10:30)
[2019-09-17] MEDS ORDERED: THIAMINE 100MG TABLET PO ONE (06:30)
--- NOTE | 2019-09-17 06:31 | NUR ---
PT MEDICATED PER MAY. LAB AT BEDSIDE.
[2019-09-17 06:41] LABS: BASOPHILS # (AUTO) 0.04 x10^3/uL (0-0.1); BASOPHILS % (AUTO) 1 % (0-1); EOSINOPHILS # (AUTO) 0.33 x10^3/uL (0-0.4); EOSINOPHILS % (AUTO) 3 % (1-7); LYMPHOCYTES # (AUTO) 2.91 x10^3/uL (1-3.4); LYMPHOCYTES % (AUTO) 30 % (22-44); MD NO; MEAN CORPUSCULAR HEMOGLOBIN 31.6 pg (27.5-34.5); MEAN PLATELET VOLUME 8.4 fL (7.4-10.4); MONOCYTES # (AUTO) 0.92 x10^3/uL (0.2-0.8); MONOCYTES % (AUTO) 9 % (2-9); NEUTROPHILS # (AUTO) 5.52 x10^3/uL (1.8-6.8); NEUTROPHILS % (AUTO) 57 % (42-75); PLATELET COUNT 308 x10^3/uL (130-400); RED BLOOD COUNT 4.88 x10^6/uL (4.38-5.82); RED CELL DISTRIBUTION WIDTH 14.5 % (9.4-14.8)
[2019-09-17 06:51] LABS: ALBUMIN 4.1 g/dL (3.4-5.0); ANION GAP 14 mmol/L (5-15); CALCIUM 8.7 mg/dL (8.5-10.1); CHLORIDE 110 mmol/L (98-107); SALICYLATE LEVEL 4.3 mg/dL (2.8-20.0)
--- NOTE | 2019-09-17 06:51 | NUR ---
RECEIVED REPORT FROM BING
--- NOTE | 2019-09-17 07:01 | NUR ---
PT UPRIGHT ON GURNEY AWAKE & TEARFUL WHILE TALKING TO DR CALVO AT BS, RESPONDS APPROP TO STAFF,COMFORT MEASURES PROVIDED, CALL LIGHT WITHIN REACH.
[2019-09-17] MEDS ORDERED: SODIUM CHLORIDE 0.9% 1,000ML IVBOLUS ONE ×2 (08:00→09:30)
[2019-09-17] MEDS ORDERED: SODIUM CHLORIDE FLUSH 10ML SYR IVF ONE (08:00)
--- NOTE | 2019-09-17 08:00 | NUR ---
PT UPRIGHT ON GURNEY WITH EYES CLOSED, CALMER AFTER ATIVAN, RESPONDS APPROP TO STAFF, COMFORT MEASURES PROVIDED, CALL LIGHT WITHIN REACH.
[2019-09-17 08:22] LABS: MICROSCOPIC INDICATED
[2019-09-17 08:29] LABS: AMPHETAMINE SCREEN, URINE Negative (Negative); BARBITURATE SCREEN, URINE Negative (Negative); BENZODIAZEPINE SCREEN, URINE Negative (Negative); CANNABINOID SCREEN, URINE Negative (Negative); COCAINE SCREEN, URINE Negative (Negative); METHADONE SCREEN, URINE Negative (Negative); OPIATE SCREEN, URINE Negative (Negative)
--- NOTE | 2019-09-17 09:02 | NUR ---
PT REMAINS UPRIGHT ON GURNEY CALMLY SLEEPING, NAD WITH EQUAL CHEST RISE/FALL, NO NEEDS AT THIS TIME, CALL LIGHT WITHIN REACH.
[2019-09-17 10:02] VITALS: BP 103/64
--- NOTE | 2019-09-17 10:02 | NUR ---
PT UPRIGHT ON [facility] AWAKE & CALM, DENIES SI AT THIS TIME & REMOVED PIV/SPO2/NIBP MONITORS- PA AWARE, RESPONDS APPROP TO STAFF, MEAL TRAY & ADDTL ATIVAN GIVEN, CALL LIGHT WITHIN REACH. Addendum: 09/17/19 at 1019 by LIZ PT UPRIGHT ON [facility] AWAKE & CALM, DENIES SI AT THIS TIME & REMOVED PIV/SPO2/NIBP MONITORS- PA AWARE, RESPONDS APPROP TO STAFF, MEAL TRAY WITH ADDTL PO FLUIDS & 2ND DOSE OF ATIVAN GIVEN, CALL LIGHT WITHIN REACH.
--- NOTE | 2019-09-17 11:04 | NUR ---
PT LAYING ON GURNEY CALMLY SLEEPING, NAD WITH EQUAL CHEST RISE/FALL, NO NEEDS AT THIS TIME, CALL LIGHT WITHIN REACH.
--- NOTE | 2019-09-17 13:01 | NUR ---
PT CONTINUES LAYING ON GURNEY CALMLY SLEEPING, NAD WITH EQUAL CHEST RISE/FALL, NO NEEDS AT THIS TIME, CALL LIGHT WITHIN REACH.
--- NOTE | 2019-09-17 13:57 | NUR ---
pt refusing breathalyzer, stating he wants to leave. TAWNY Sanchez notified. Per pt is to have psych [facility] yanira, Psych ADRIANA Jackson notified pt requires consult.
--- NOTE | 2019-09-17 14:12 | NUR ---
break RN note: pt seen by ADRIANA Jackson, pt denies SI and verbalizes he is safe for discharge. discharge orders received.
--- NOTE | 2019-09-17 14:25 | NUR ---
this RN went to discharge pt, pt not in room, pt has left department before receiving discharge instructions.
== END 2019-09-17 14:25 | disposition home or self-care (01) ==
LOC: ED 07:14
DX: F10.220 Alcohol dependence with intoxication, uncomplicated (principal); F41.1 Generalized anxiety disorder; R45.851 Suicidal ideations; F32.9 Major depressive disorder, single episode, unspecified; R94.31 Abnormal electrocardiogram [ECG] [EKG]; Y90.0 Blood alcohol level of less than 20 mg/100 ml
CPT/HCPCS: 36415; 71045; 80048; 80307; 81001; 82040; 85025; 93005; 99285; J7030; Q0162